=== PATIENT | male | born 1950 | race Caucasian/White ===

== ENCOUNTER 2020-12-30 12:59 | Emergency (ER) | payer OTHER ==
[2020-12-30] MEDS ORDERED: ZOFRAN ODT 4 MG PO ONE (13:01)
[2020-12-30] MEDS ORDERED: MORPHINE SULFATE 2 MG INJ IV ONE (13:01)
[2020-12-30] MEDS ORDERED: MORPHINE SULFATE 2 MG INJ ONE (13:04)
[2020-12-30] MEDS ORDERED: Sodium Chloride 0.9% 1000 ML 1,000 ML ONE (13:04)
[2020-12-30] MEDS ORDERED: Zofran 4 MG/2 ML VIAL ONE (13:04)
[2020-12-30] MEDS ORDERED: Sodium Chloride 0.9% 1000 ML 1,000 ML IV SCH (13:15)
[2020-12-30 13:18] LABS: Absolute Neutrophil Ct (ANC) 7.45 (1.4-6.9); BASOPHIL % 0.2 % (0.0-0.4); Basophil (Absolute #) 0.02 (0-0.4); Eosinophil % 1.4 % (0.00-5.0); Eosinophil (Absolute #) 0.14 (0-0.5); Hematocrit 45.4 % (42-50); Hemoglobin 15.2 gm/dl (12.5-18.0); Lymphocytes % 16.5 % (24.0-44.0); Mean Cell Volume 94.6 fl (78-100); Mean Corpuscular Hemoglobin 31.7 pg (26-32); Mean Corpuscular Hgb Concent. 33.5 g/dl (32-36); Mean Platelet Volume 9.6 fl (7.5-11.0); Monocyte (Absolute #) 0.49 (0.0-1.3); Monocytes % 5.1 % (0.0-12.0); Neutrophil % 76.8 % (36.0-66.0); Platelet Count 228 K/mm3 (150-450); Red Cell Distribution Width 12.7 % (11.5-14.0); White Blood Count 9.7 K/mm3 (4.0-10.5)
--- NOTE | 2020-12-30 13:48 | ERPHSYRPT ---
- History of Present Illness Time Seen by Provider: 12/30/20 13:05 Historian: patient Exam Limitations: no limitations Patient Subjective Stated Complaint: pt here for abd pain to right side since 0700 this am Triage Nursing Assessment: pt alert, walked in , resp easy, face mask in place, holding right side, abd soft, has dry heaves Physician History: Patient is a 70-year-old male presents to our emergency department with complaints of right lower quadrant pain. Pain started this morning. Pain has been constant. Pain described as an ache that is localized. No radiation. No testicular pain. Patient is nauseous and has been dry heaving. Patient denies history of the same. No associated chest pain or shortness of breath. No trauma. No fever. Symptoms are moderate in intensity. No specific worsening or improving factors. Patient voices no other complaints or concerns at this time. Timing/Duration: today Activities at Onset: activity Quality: aching Abdominal Pain Onset Location: RLQ Pain Radiation: no radiation Severity of Pain-Max: moderate Severity of Pain-Current: mild Modifying Factors: Improves With: nothing Associated Symptoms: nausea, No chest pain, No diarrhea, No fever/chills, No shortness of breath, No testicular pain Previous symptoms: no prior history Allergies/Adverse Reactions: No Known Drug Allergies Allergy (Verified 12/30/20 13:06) Home Medications: Metformin HCl 500 mg [Glucophage 500 MG] 500 mg PO BID 07/26/16 [History] Amlodipine Besylate [Norvasc] 1 ea DAILY 12/30/20 [History] Glimepiride 1 mg DAILY 12/30/20 [History] Insulin Degludec [Tresiba Flextouch U-100] 20 units DAILY 12/30/20 [History] Lisinopril 10 mg [Zestril 10 MG] 1 ea DAILY 12/30/20 [History] Simvastatin 20Mg [Zocor 20Mg] 20 mg PO DAILY 12/30/20 [History] Hx Tetanus, Diphtheria Vaccination/Date Given: Yes Hx Influenza Vaccination/Date Given: No Hx Pneumococcal Vaccination/Date Given: No Immunizations Up to Date: Yes Travel Risk - International Travel Have you traveled outside of the country in past 3 weeks: No - Coronavirus Screening Are you exhibiting any of the following symptoms?: Yes Symptoms: Vomiting/Diarrhea - Vaccine Status Have you recieved a Covid-19 vaccination: No - Review of Systems Constitutional: No Symptoms, No Fever, No Chills Eyes: No Symptoms Ears, Nose, & Throat: No Symptoms Respiratory: No Symptoms, No Cough, No Dyspnea Cardiac: No Symptoms, No Chest Pain, No Edema, No Syncope Abdominal/Gastrointestinal: No Symptoms, No Abdominal Pain, No Nausea, No Vomiting, No Diarrhea Genitourinary Symptoms: No Symptoms, No Dysuria Musculoskeletal: No Symptoms, No Back Pain, No Neck Pain Skin: No Symptoms, No Rash Neurological: No Symptoms, No Dizziness, No Focal Weakness, No Sensory Changes Psychological: No Symptoms Endocrine: No Symptoms Hematologic/Lymphatic: No Symptoms Immunological/Allergic: No Symptoms All Other Systems: Reviewed and Negative - Past Medical History Pertinent Past Medical History: Yes Neurological History: No Pertinent History ENT History: No Pertinent History Cardiac History: No Pertinent History, Hypertension Respiratory History: No Pertinent History Endocrine Medical History: No Pertinent History, Diabetes Type II Musculoskeletal History: No Pertinent History GI Medical History: No Pertinent History History: No Pertinent History Psycho-Social History: No Pertinent History Male Reproductive Disorders: No Pertinent History - Past Surgical History Past Surgical History: No Neuro Surgical History: No Pertinent History Cardiac: No Pertinent History Respiratory: No Pertinent History Gastrointestinal: No Pertinent History Genitourinary: No Pertinent History Musculoskeletal: No Pertinent History Male Surgical History: No Pertinent History - Social History Smoking Status: Never smoker Exposure to second hand smoke: No Drug Use: none Patient Lives Alone: Yes Significant Family History: no pertinent family hx - Nursing Vital Signs Nursing Vital Signs: Initial Vital Signs Temperature 97.8 F 12/30/20 13:00 Pulse Rate 74 12/30/20 13:00 Respiratory Rate 20 12/30/20 13:00 Blood Pressure 158/84 12/30/20 13:00 O2 Sat by Pulse Oximetry 96 12/30/20 13:00 Pain Scale Pain Intensity 6 - Physical Exam General Appearance: no apparent distress, alert Eye Exam: PERRL/EOMI, eyes nml inspection Ears, Nose, Throat Exam: normal ENT inspection, pharynx normal, moist mucous membranes Neck Exam: normal inspection, non-tender, supple, full range of motion Respiratory Exam: normal breath sounds, lungs clear, No respiratory distress Cardiovascular Exam: regular rate/rhythm, normal heart sounds Gastrointestinal/Abdomen Exam: soft, tenderness, other (Tenderness palpation right lower quadrant over McBurney's point.), No mass, No guarding, No pulsatile mass Back Exam: normal inspection, normal range of motion, No CVA tenderness, No vertebral tenderness Extremity Exam: normal inspection, normal range of motion, pelvis stable Neurologic Exam: alert, oriented x 3, cooperative, normal mood/affect, nml cerebellar function, sensation nml, No motor deficits Skin Exam: normal color, warm, dry Lymphatic Exam: adenopathy SpO2 Interpretation: normal SpO2: 96 O2 Delivery: Room Air - Course Nursing assessment & vital signs reviewed: Yes Ordered Tests: Active Orders 24 hr Category Date Time Status IV Insertion STAT Care 12/30/20 13:01 Completed ABDOMEN AND PELVIS W/0 CONTRAS [CT] Stat Exams 12/30/20 13:01 Completed CBC W DIFF Stat Lab 12/30/20 13:06 Completed CMP Stat Lab 12/30/20 13:06 Completed CULTURE,URINE Stat Lab 12/30/20 15:55 Received LIPASE Stat Lab 12/30/20 13:06 Completed TROPONIN Q3H Lab 12/30/20 13:06 Completed TROPONIN Q3H Lab 12/30/20 16:10 Completed UA W/RFX UR CULTURE Stat Lab 12/30/20 15:34 Completed Medication Summary Discontinued Medications Generic Name Dose Route Start Last Admin Trade Name Jesusq PRN Reason Stop Dose Admin Sodium Chloride 1,000 mls @ 100 mls/hr 12/30/20 13:15 12/30/20 13:05 Sodium Chloride 0.9% 1000 Ml IV 01/29/21 13:14 100 mls/hr .Q10H AXEL Administration Sodium Chloride Confirm 12/30/20 13:04 Sodium Chloride 0.9% 1000 Ml Administered 12/30/20 13:05 Dose 1,000 mls @ ud .ROUTE .STK-MED ONE Morphine Sulfate 2 mg 12/30/20 13:01 12/30/20 13:05 Morphine Sulfate 2 Mg Inj IV 12/30/20 13:02 2 mg STAT ONE Administration Morphine Sulfate Confirm 12/30/20 13:04 Morphine Sulfate 2 Mg Inj Administered 12/30/20 13:05 Dose 2 mg .ROUTE .STK-MED ONE Morphine Sulfate 4 mg 12/30/20 13:56 12/30/20 14:02 Morphine Sulfate 4 Mg Inj IV 12/30/20 13:57 4 mg STAT ONE Administration Morphine Sulfate Confirm 12/30/20 14:01 Morphine Sulfate 4 Mg Inj Administered 12/30/20 14:02 Dose 4 mg .ROUTE .STK-MED ONE Ondansetron HCl 4 mg 12/30/20 13:01 12/30/20 13:06 Zofran Odt 4 Mg PO 12/30/20 13:02 4 mg STAT ONE Administration Ondansetron HCl Confirm 12/30/20 13:04 Zofran 4 Mg/2 Ml Vial Administered 12/30/20 13:05 Dose 4 mg .ROUTE .STK-MED ONE Lab/Rad Data: Laboratory Result Diagrams 12/30/20 13:06 12/30/20 13:06 Laboratory Results 12/30/20 12/30/20 12/30/20 Range/Units 16:10 15:34 13:06 WBC (4.0-10.5) K/mm3 RBC (4.1-5.6) M/mm3 Hgb (12.5-18.0) gm/dl Hct (42-50) % MCV (78-100) fl MCH (26-32) pg MCHC (32-36) g/dl RDW (11.5-14.0) % Plt Count (150-450) K/mm3 MPV (7.5-11.0) fl Gran % (36.0-66.0) % Eos # (Auto) (0-0.5) Absolute Lymphs (auto) (1.0-4.6) Absolute Monos (auto) (0.0-1.3) Lymphocytes % (24.0-44.0) % Monocytes % (0.0-12.0) % Eosinophils % (0.00-5.0) % Basophils % (0.0-0.4) % Absolute Granulocytes (1.4-6.9) Basophils # (0-0.4) Sodium (137-145) mmol/L Potassium (3.5-5.1) mmol/L Chloride (98-107) mmol/L Carbon Dioxide (22-30) mmol/L Anion Gap (5-15) MEQ/L BUN (9-20) mg/dL Creatinine (0.66-1.25) mg/dL Estimated GFR ML/MIN Glucose (74-106) mg/dL Calcium (8.4-10.2) mg/dL Total Bilirubin (0.2-1.3) mg/dL AST (17-59) U/L ALT (0-50) U/L Alkaline Phosphatase (38-126) U/L Troponin I < 0.012 < 0.012 (0.000-0.034) ng/mL Serum Total Protein (6.3-8.2) g/dL Albumin (3.5-5.0) g/dL Lipase (23-300) U/L Urine Color YELLOW (YELLOW) Urine Appearance CLEAR (CLEAR) Urine pH 6.0 (5-6) Ur Specific Alpha 1.014 (1.005-1.025) Urine Protein 30 (Negative) Urine Ketones NEGATIVE (NEGATIVE) Urine Blood SMALL (0-5) Vipin/ul Urine Nitrite NEGATIVE (NEGATIVE) Urine Bilirubin NEGATIVE (NEGATIVE) Urine Urobilinogen NEGATIVE (0-1) mg/dL Ur Leukocyte Esterase NEGATIVE (NEGATIVE) Urine WBC (Auto) NONE (0-5) /HPF Urine RBC (Auto) 16-25 (0-2) /HPF U Epithel Cells (Auto) NONE (FEW) /HPF Urine Bacteria (Auto) NONE (NEGATIVE) /HPF Urine Culture Reflexed ORDERED SEPARATELY (NO) Urine Glucose 150 (NEGATIVE) mg/dL 12/30/20 12/30/20 Range/Units 13:06 13:06 WBC 9.7 (4.0-10.5) K/mm3 RBC 4.80 (4.1-5.6) M/mm3 Hgb 15.2 (12.5-18.0) gm/dl Hct 45.4 (42-50) % MCV 94.6 (78-100) fl MCH 31.7 (26-32) pg MCHC 33.5 (32-36) g/dl RDW 12.7 (11.5-14.0) % Plt Count 228 (150-450) K/mm3 MPV 9.6 (7.5-11.0) fl Gran % 76.8 H (36.0-66.0) % Eos # (Auto) 0.14 (0-0.5) Absolute Lymphs (auto) 1.60 (1.0-4.6) Absolute Monos (auto) 0.49 (0.0-1.3) Lymphocytes % 16.5 L (24.0-44.0) % Monocytes % 5.1 (0.0-12.0) % Eosinophils % 1.4 (0.00-5.0) % Basophils % 0.2 (0.0-0.4) % Absolute Granulocytes 7.45 H (1.4-6.9) Basophils # 0.02 (0-0.4) Sodium 139 (137-145) mmol/L Potassium 3.6 (3.5-5.1) mmol/L Chloride 98 (98-107) mmol/L Carbon Dioxide 28 (22-30) mmol/L Anion Gap 13.6 (5-15) MEQ/L BUN 20 (9-20) mg/dL Creatinine 1.66 H (0.66-1.25) mg/dL Estimated GFR 44.0 ML/MIN Glucose 148 H (74-106) mg/dL Calcium 10.4 H (8.4-10.2) mg/dL Total Bilirubin 0.70 (0.2-1.3) mg/dL AST 27 (17-59) U/L ALT 20 (0-50) U/L Alkaline Phosphatase 88 (38-126) U/L Troponin I (0.000-0.034) ng/mL Serum Total Protein 7.0 (6.3-8.2) g/dL Albumin 4.1 (3.5-5.0) g/dL Lipase 164 (23-300) U/L Urine Color (YELLOW) Urine Appearance (CLEAR) Urine pH (5-6) Ur Specific Alpha (1.005-1.025) Urine Protein (Negative) Urine Ketones (NEGATIVE) Urine Blood (0-5) Vipin/ul Urine Nitrite (NEGATIVE) Urine Bilirubin (NEGATIVE) Urine Urobilinogen (0-1) mg/dL Ur Leukocyte Esterase (NEGATIVE) Urine WBC (Auto) (0-5) /HPF Urine RBC (Auto) (0-2) /HPF U Epithel Cells (Auto) (FEW) /HPF Urine Bacteria (Auto) (NEGATIVE) /HPF Urine Culture Reflexed (NO) Urine Glucose (NEGATIVE) mg/dL - Progress Progress: improved Progress Note: Patient reassessed. Pain improved somewhat however he continues to experience right lower quadrant pain. Renal function compromise. There is an obstructing kidney stone on the right. In light of this patient will be transferred to [facility] for urology consultation. Plan of care discussed with patient. He agrees to transfer to [facility] for further evaluation and treatment. Case discussed with Dr. Nieves. ED physician who accepts transfer. 12/30/20 17:14 Counseled pt/family regarding: lab results, diagnosis, rad results - Departure Departure Disposition: Transfer Clinical Impression: Esophagitis, Nephrolithiasis, Hydronephrosis, Ureterolithiasis, Splenomegaly, Cardiomegaly, Chronic pancreatitis, Pancreatic cyst, Cholelithiasis, Prostate hypertrophy, Levoscoliosis, Spondylosis, Spondylolysis, Renal colic on right side, Acute renal injury Condition: Stable Critical Care Time: No Referrals: DAPHNE JACQUES [Primary Care Provider] - Additional Instructions: Discharge/Care Plan MIGUELINAAlbaMARCIA DAILEY was seen on 12/30/20 in the Emergency Room. The patient was counseled regarding Diagnosis,Lab results, Imaging studies, need for follow up and when to return to the Emergency Room. Prescriptions given: Discharge Note I have spoken with the patient and/or caregivers. I have explained the patient's condition, diagnosis and treatment plan based on the information available to me at this time. I have answered the patient's and/or caregiver's questions and addressed any concerns. The patient and/or caregivers have as good understanding of the patient's diagnosis, condition and treatment plan as can be expected at this point. The vital signs have been stable. The patient's condition is stable and appropriate for discharge from the emergency department. The patient will pursue further outpatient evaluation with the primary care physician or other designated or consulting physician as outlined in the discharge instructions. The patient and/or caregivers are agreeable to this plan of care and follow-up instructions have been explained in detail. The patient and/or caregivers have received these instruction. The patient/and or caregivers are aware that any significant change in condition or worsening of symptoms should prompt an immediate return to this or the closest emergency department or call 911.
[2020-12-30] MEDS ORDERED: MORPHINE SULFATE 4 MG INJ IV ONE (13:56)
[2020-12-30] MEDS ORDERED: MORPHINE SULFATE 4 MG INJ ONE (14:01)
[2020-12-30 14:09] LABS: ALBUMIN 4.1 g/dL (3.5-5.0); BILIRUBIN,TOTAL 0.7 mg/dL (0.2-1.3); Calcium 10.4 mg/dL (8.4-10.2); Creatinine 1 1.66 mg/dL (0.66-1.25); Potassium 3.6 mmol/L (3.5-5.1)
[2020-12-30 14:11] LABS: ANION GAP 13.6 MEQ/L (5-15)
--- NOTE | 2020-12-30 14:57 | XRAY ---
Indication: Abdomen pain, nausea, and vomiting. Multiple contiguous axial images obtained through the abdomen and pelvis without contrast. Comparison: None Lung bases images moderate dependent atelectasis without infiltrate or effusion. Heart is borderline enlarged. Visualized distal esophagus demonstrates moderate circumferential wall thickening up to 6 mm concerning for esophagitis. Noncontrasted stomach and bowel loops appear nonobstructed. Normal appendix. No free fluid/air. There are multiple tiny punctate bilateral renal micro-calculi. Right kidney is mildly hydronephrotic and right ureter is prominent along its entire course up to 8 mm in diameter up to the UVJ where there is a 3 mm calculus. Gallbladder normally distended with 1.5 cm gallstone. Spleen is enlarged measuring 13 cm. Spleen demonstrates multiple calcifications from chronic pancreatitis. Also 2.7 cm pancreatic tail noncalcified cystic mass. Enlarged prostate gland impresses on the base of the bladder. Remaining liver, adrenal glands, ureters, and bladder are unremarkable for noncontrast exam. Mild scattered aortoiliac calcifications without AAA. Osseous structures intact with mild levorotoscoliosis centered at L4, moderate/advanced degenerative spondylosis throughout the thoracolumbar spine, and left L5 spondylolysis without spondylolisthesis. Impression: 1. Right-sided hydronephrosis and hydroureter to the level of the UVJ where there is a 3 mm calculus. Additional bilateral renal micro-calculi. 2. Distal esophageal wall thickening. Rule out esophagitis. 3. Incidental borderline cardiomegaly, chronic pancreatitis calcifications, indeterminate pancreatic cyst, gallstone, splenomegaly, enlarged prostate gland, and chronic bony findings.
[2020-12-30 15:55] LABS: Appearance CLEAR (CLEAR); Bilirubin NEGATIVE (NEGATIVE); Blood SMALL Ery/ul (0-5); Glucose 150 mg/dL (NEGATIVE); Ketones NEGATIVE (NEGATIVE); Leukocyte Esterase NEGATIVE (NEGATIVE); Nitrite NEGATIVE (NEGATIVE); Protein,Urine Dip 30 (Negative); Specific Gravity 1.014 (1.005-1.025); Urobilinogen NEGATIVE mg/dL (0-1)
[2020-12-30 19:52] VITALS: BP 162/84; PULSE 88
[2020-12-30 22:31] VITALS: O2SAT 96
== END 2020-12-30 19:15 | disposition short-term general hospital (02) ==
LOC: ED 12:59
DX: K20.90 Esophagitis, unspecified without bleeding (principal); N20.0 Calculus of kidney; N13.2 Hydronephrosis with renal and ureteral calculous obstruction; R16.1 Splenomegaly, not elsewhere classified; I51.7 Cardiomegaly; K85.90 Acute pancreatitis without necrosis or infection, unspecified; K86.2 Cyst of pancreas; K80.20 Calculus of gallbladder without cholecystitis without obstruction; N40.0 Benign prostatic hyperplasia without lower urinary tract symptoms; E00-E89 Endocrine, nutritional and metabolic diseases; M41.80 Other forms of scoliosis, site unspecified; M47.9 Spondylosis, unspecified; N23 Unspecified renal colic; N17.9 Acute kidney failure, unspecified; Z79.899 Other long term (current) drug therapy
CPT/HCPCS: 36000; 36415; 51701; 74176; 80053; 81001; 83690; 84484; 85025; 87086; 96374; 96375; 96376; 99285; J2270; J2405; Q0162